=== PATIENT | male | born 1955 | race Caucasian/White ===

== ENCOUNTER → 2016-08-24 | Outpatient (CLI) | payer BC ==
[2014-08-28 19:00] VITALS: BP 124/75
[~2016-08-24] MED LIST: IBUP-1027 PO; NAPR220T70 PO
[2016-08-24 09:34] LABS: INR 0.9 (0.8-1.1)
[2016-08-24 10:32] LABS: BILIRUBIN,URINE NEGATIVE (NEG); GLUCOSE,URINE NEGATIVE (NEG); NITRITE,URINE NEGATIVE (NEG); PH,URINE 5.5; PROTEIN,URINE NEGATIVE (NEG-TRACE); UROBILINOGEN,URINE 0.2 mg/dL (0.2 mg/dL)
[2016-08-24 10:49] LABS: BACTERIA,URINE 0 /HPF (0-FEW); RBC,URINE 0 /HPF (0-2); WBC,URINE OCC /HPF (0-4)
[2016-08-24 10:50] LABS: SQUAMOUS EPITHELIAL CELL,UR FEW /LPF
--- NOTE | 2016-08-24 12:18 | EKG ---
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
--- NOTE | 2016-08-24 13:22 | RAD ---
Exam performed: 2 views of the chest. Indication: joint prehab patient-hx hypertension Date of Service:08/24/2016 9:58 AM . Comparison : 08/28/14 Findings: PA and lateral radiographs of the chest reveal a normal cardiomediastinal contour. The lungs are clear. No pleural fluid is seen. The visualized osseous structures are unremarkable. Impression: Radiographically normal chest.
== END | disposition home or self-care (01) ==
LOC: SURGPAT 14:31
PROVIDERS: ATTEND Orthopaedic Surgery Sports Medicine
DX: Z01.818 Encounter for other preprocedural examination (principal)
CPT/HCPCS: 36415; 71020; 81001; 85610; 85651; 85730; 87641; 93005

== ENCOUNTER 2016-09-07 07:30 | Inpatient (IN) | payer BC ==
[~2016-09-07] VITALS: Ht 175.3 cm; Wt 99.8 kg
[2016-09-16] MEDS ORDERED: CRESTOR10 MG PO (08:25)
[2016-09-16] MEDS ORDERED: LISI-338 PO (08:25)
[2016-09-28] MEDS ORDERED: HYDROCODONE/APAP 7.5/325MG TABLET. PO PRN (06:00)
[2016-09-28] MEDS ORDERED: MORPHINE SULFATE 5 MG, KETOROLAC TROMETHAMINE 30 MG, ROPIVacaine 0.5% PF 60 ML, EPINEPH... INT ART ONE ×5 (06:00)
[2016-09-28] MEDS ORDERED: TRANEXAMIC ACID 1,000 MG in IV NS 50ML -- 1ST BAG INJ ONE (06:00)
[2016-09-28] MEDS ORDERED: MELOXICAM 7.5 MG TABLET PO PRN (06:00)
[2016-09-28] MEDS ORDERED: CEFAZOLIN 2GM PREMIX 50 ML IV PRN (06:00)
[2016-09-28] MEDS ORDERED: IV RINGERS,LACTATED 1000ML 1,000 ML IV SCH (07:00)
[2016-09-28] MEDS ORDERED: FENTANYL PF 100 MCG/2 ML VIAL. IV PRN ×3 (07:00→09:45)
[2016-09-28] MEDS ORDERED: PROCHLORPERAZINE 10 MG/2 ML VIAL. IV PRN ×2 (07:00→09:45)
[2016-09-28] MEDS ORDERED: LIDOCAINE 1% 1 ML SYRINGE. ID PRN (07:00)
[2016-09-28] MEDS ORDERED: ONDANSETRON PF 4 MG/2 ML VIAL. IV PRN (07:00)
[2016-09-28] MEDS ORDERED: TRANEXAMIC ACID 1,000 MG in IV NS 50ML -- 2ND BAG INJ ONE (08:00)
[2016-09-28] MEDS ORDERED: ROCURONIUM 50 MG/5 ML VIAL. ONE (08:24)
[2016-09-28] MEDS ORDERED: PROPOFOL 20 ML IV ONE (08:24)
[2016-09-28] MEDS ORDERED: LIDOCAINE 2% 100 MG/5 ML SYRINGE. ONE (08:24)
[2016-09-28] MEDS ORDERED: FENTANYL PF 100 MCG/2 ML VIAL. ONE (08:24)
[2016-09-28] MEDS ORDERED: SUCCINYLCHOLINE 200 MG/10 ML VIAL. ONE (08:25)
--- NOTE | 2016-09-28 09:44 | PDOC ---
BRIEF OPERATIVE NOTE Date: Sep 28, 2016 Pre-Op Diagnosis R hip AVN Post-Op Diagnosis same Procedure Performed R JASON Surgeon Jonathon Austin Anesthesia Type: General Complications none REYNA BERMUDEZ II, MD Sep 28, 2016 09:44
[2016-09-28] MEDS ORDERED: OXYCODONE/APAP 5/325 TABLET. PO PRN (09:45)
[2016-09-28] MEDS ORDERED: TRAMADOL 50 MG TABLET. PO PRN ×2 (09:45)
[2016-09-28] MEDS ORDERED: CALCIUM CARBONATE 500 MG TAB.CHEW PO PRN (09:45)
[2016-09-28] MEDS ORDERED: PROCHLORPERAZINE 5 MG TABLET. PO PRN (09:45)
[2016-09-28] MEDS ORDERED: ZOLPIDEM 5 MG TABLET. PO PRN (09:45)
[2016-09-28] MEDS ORDERED: MORPHINE SULFATE 4 MG/ML DISP.SYRIN. IV PRN ×2 (09:45)
[2016-09-28] MEDS ORDERED: MORPHINE SULFATE 2 MG/ML DISP.SYRIN. IV PRN (09:45)
[2016-09-28] MEDS ORDERED: HYDROCODONE/APAP 10/325 TABLET. PO PRN (09:45)
[2016-09-28] MEDS ORDERED: METOCLOPRAMIDE HCL 10 MG/2 ML VIAL. IV PRN (09:45)
[2016-09-28] MEDS ORDERED: 0.9 % SODIUM CHLORIDE 10 ML DISP.SYRIN. IV PRN (09:45)
[2016-09-28] MEDS ORDERED: ACETAMINOPHEN 325 MG TABLET. PO PRN (09:45)
[2016-09-28] MEDS ORDERED: OXYCODONE/APAP 7.5/325 TABLET. PO PRN (09:45)
[2016-09-28] MEDS ORDERED: DEXTROSE 50% 25 GM / 50ML DISP.SYRIN. IV PRN (09:45)
[2016-09-28] MEDS ORDERED: MORPHINE SULFATE 10 MG/ML VIAL. IV PRN (09:45)
[2016-09-28] MEDS ORDERED: DIPHENHYDRAMINE 50 MG/ML VIAL. IV PRN (09:45)
[2016-09-28] MEDS ORDERED: CEFAZOLIN 2GM PREMIX 50 ML IV SCH (10:00)
[2016-09-28 10:10] LABS: PROTHROMBIN TIME PATIENT 12.3 SEC (11.7-14.0)
[2016-09-28] MEDS ORDERED: DESFLURANE 61 TO 120 MINUTES IH ONE (10:51)
[2016-09-28] MEDS ORDERED: DEXAMETHASONE SOD PHOS 20 MG/5 ML VIAL. ONE (10:51)
[2016-09-28] MEDS ORDERED: PHENYLEPHRINE in 0.9% NACL PF 1 MG/10 ML DISP.SYRIN. IV ONE (10:51)
[2016-09-28] MEDS ORDERED: GLYCOPYRROLATE 1 MG/5 ML VIAL. ONE (11:07)
[2016-09-28] MEDS ORDERED: NEOSTIGMINE METHYLSULFATE 5 MG/5 ML SYRINGE. ONE (11:07)
[2016-09-28] MEDS ORDERED: ONDANSETRON PF 4 MG/2 ML VIAL. ONE (11:07)
[2016-09-28] MEDS ORDERED: EPHEDRINE PF IN SALINE 50 MG/5 ML DISP.SYRIN. IV ONE (11:22)
[2016-09-28] MEDS: FENTANYL PF 100 MCG/2 ML VIAL. IV PRN ×4 (12:28→13:52)
[2016-09-28] MEDS: MORPHINE SULFATE 2 MG/ML DISP.SYRIN. IV PRN ×4 (12:33→13:20)
--- NOTE | 2016-09-28 12:54 | RAD ---
Pelvis radiograph History: Postoperative total hip arthroplasty. Comparison: 06/10/2016. Findings: AP view of the pelvis. Upper pelvis has been excluded from examination. There has been placement of right total hip arthroplasty. At least one acetabular screw is present. Relationship of the femoral head component to the acetabular cup appears anatomic on this single frontal view. Soft tissue gas is compatible with recent postoperative status. Impression: Postoperative changes of right total hip arthroplasty.
[2016-09-28] MEDS: HYDROMORPHONE 2 MG/ML VIAL. IV PRN ×2 (12:58→13:10)
[2016-09-28 14:34] VITALS: BP 94/59
[2016-09-28 15:02] VITALS: BP 109/70
--- NOTE | 2016-09-28 15:03 | OP ---
DATE OF SURGERY: 09/28/2016 SURGEON: Arun Bermudez M.D. CUSTOMS OFFICER: Mary Austin. ANESTHESIA: General. 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 PROCEDURE PERFORMED: Right total hip arthroplasty. COMPLICATIONS: None. ESTIMATED BLOOD LOSS: 100 mL. COMPONENTS INSERTED: 1. Drummond and Nephew size 4 standard offset Anthology femur with a 36+0 Oxinium head. 2. A 54 mm outer diameter acetabular shell with a 20-degree posteriorly directed elevated polyethylene liner. REASON FOR PROCEDURE: The patient is a very pleasant 61-year-old gentleman who has had lot of right-sided hip and groin pain that has been progressively worse. I had seen and evaluated in my outpatient orthopedic surgery clinic. We discussed the risks, benefits, alternatives to proceeding with the above surgery and he elected to proceed. DESCRIPTION OF PROCEDURE: The patient was greeted in the preoperative area by myself. Correct extremity was marked and verified. He was taken back to the operative suite and antibiotics were started en route. Once in the OR, he had successful induction of general anesthesia. He was laid in lateral decubitus position with the left side down and all pressure points padded including an axillary roll. He was secured to the bed with hip positioning device. We then proceeded to prep and drape right lower extremity in usual sterile fashion and then conducted a standard preoperative timeout. I then palpated, marked surface anatomy and made my standard posterolateral skin incision and dissected subcutaneous tissue down to the level of fascia and cauterized bleeders with electrocautery. I used a Woodard elevator to sweep aside some adherent subcutaneous tissue for better identification for later repair of the fascia. I then incised this in line with skin incision and bluntly split the gluteus yojana. I swept aside bursal tissue and held the leg in internal rotation and identified the quadratus and piriformis and took these down with electrocautery. The piriformis was tagged for later repair. I then incised the capsule in a Z-plasty type incision and tagged the ends of this for later repair as well. I then dislocated the femoral head and noted approximately half dollar sized area of cartilage that had from the underlying subchondral bone, which appeared markedly sclerotic and flattened. I then palpated, marked reproducible landmarks at greater and lesser trochanter and then marked the center of his femoral head and then took my measurements for his length and offset. I then made my neck cut approximately 1 cm proximal to lesser trochanter and delivered the femoral head from the operative field. I then placed my anterior and posterior acetabular retractors and excised the labrum and soft tissue from the medial acetabulum. I identified the transverse acetabular ligament and began reaming starting with 45 up to 54, which gave a good fit. After this, I took down some osteophytes posteriorly with a curved osteotome. I then impacted my cup in place, referencing his transverse acetabular ligament and the cross bar attachment. Once I ensured it was fully seated, I placed the screw into the posterior column. I then irrigated out the operative field again and then placed my liner in position with the elevation retro-posteriorly and then impacted this in position. I then directed my attention to the femur and delivered the operative field by rotating the leg and adducting the hip. The proximal femoral elevator was also used. I then used the papi cutting osteotome followed by canal finding reamer and a lateralizing reamer. I then began broaching with size 1 up to size 4, which gave a good fit and fill. I then trialed various head and neck sizes and felt the standard +0 gave the best caodaism of his measurements as well as stability and range of motion. I was happy with leg lengths. I then removed all trial components at the femur and thoroughly irrigated out the canal and operative field again and then impacted to place my 4 standard offset stem. I then trialed the +0 again and was happy with this. I then washed and dried the Munguia taper region and gently impacted my Oxinium femoral head into position. The hip was then reduced. We then injected my periarticular mixture into the robert-incisional area and operative area. After this, I closed capsule with simple interrupted #2 Ethibond. The piriformis was reapproximated through drill holes. I then irrigated out for the last time the operating field. I then closed the fascia with running #2 Quill. Inverted interrupted 2-0 in a multilayer fashion, Vicryl, was used to close subcutaneous tissue. Running 4-0 Monocryl in a subcuticular fashion was used for the skin. Prior to completion of wound closure, all counts reported correct x 2. No complications. At the conclusion of surgery, the patient was awakened from anesthesia. He tolerated this well. He was transferred gently supine to the hospital bed and taken to PACU in stable and extubated condition. Postop plan is to admit him to the [facility] for DVT and antibiotic prophylaxis. He will receive IV pain medicine and Rehab as well. ARUN BERMUDEZ MD DR: SRINIVASA/sarah JOB#: [id number] / [id number] SOWMYA
[2016-09-28] MEDS ORDERED: WARFARIN 7.5 MG TABLET. PO ONE (16:00)
[2016-09-28] MEDS: IV DEXTROSE 5 %-0.45 % NACL 1,000 ML IV SCH ×2 (16:28→19:41)
[2016-09-28] MEDS: CEFAZOLIN 2GM PREMIX 50 ML IV SCH ×2 (16:29→22:04)
[2016-09-28] MEDS: FERROUS SULFATE 325 MG TABLET. PO SCH (17:00)
[2016-09-28 18:56] VITALS: BP 106/66
[2016-09-28] MEDS: CELECOXIB 200 MG CAPSULE. PO SCH (20:48)
[2016-09-28] MEDS: ATORVASTATIN CALCIUM 40 MG TABLET. PO SCH (20:48)
[2016-09-28] MEDS: HYDROCODONE/APAP 7.5/325MG TABLET. PO PRN (20:49)
[2016-09-28 23:01] VITALS: BP 122/84
[2016-09-29 03:02] VITALS: BP 111/69
[2016-09-29] MEDS: CEFAZOLIN 2GM PREMIX 50 ML IV SCH (04:43)
[2016-09-29 05:17] LABS: INR 1.2 (0.8-1.1); PROTHROMBIN TIME PATIENT 14.5 SEC (11.7-14.0)
[2016-09-29] MEDS ORDERED: MAGNESIUM HYDROXIDE 2,400 MG/30 ML ORAL.SUSP. PO PRN (06:00)
[2016-09-29 06:05] LABS: HEMATOCRIT 38.3 % (39.0-53.0); HEMOGLOBIN 13.3 g/dL (13.0-17.5); RED BLOOD COUNT 3.92 x10^6/uL (4.30-5.70); RED CELL DISTRIBUTION WIDTH 12.8 % (11.5-14.5); WHITE BLOOD COUNT 17.4 x10^3/uL (4.0-11.0)
[2016-09-29 06:14] VITALS: BP 116/77
[2016-09-29] MEDS: MULTIVITAMIN with MINERAL TABLET. PO SCH (08:22)
[2016-09-29] MEDS: CELECOXIB 200 MG CAPSULE. PO SCH ×2 (08:22→20:50)
[2016-09-29] MEDS: SENNOSIDES/DOCUSATE 8.6/50MG TABLET. PO SCH (08:22)
[2016-09-29] MEDS: FERROUS SULFATE 325 MG TABLET. PO SCH ×2 (08:22→17:19)
[2016-09-29] MEDS: HYDROCODONE/APAP 7.5/325MG TABLET. PO PRN ×6 (08:22→23:09)
[2016-09-29] MEDS: LISINOPRIL 5 MG TABLET. PO SCH (09:00)
--- NOTE | 2016-09-29 09:24 | DISCH ---
DISCHARGE INSTRUCTIONS Condition on Discharge Condition on Discharge: Stable Activity After Discharge Activity Instructions for Disc: Activity as tolerated Bathing Instructions: Shower-keep dressing dry Weight Bearing Status after Di: As tolerated Diet after Discharge Diet after Discharge: Regular Wound Incision Care Wound/Incision Care: Ice to area for comfort, Keep wound/cast CDI, Do not change dressing Contacting the DRBrandt after DC Call your doctor for: Concerns you may have Follow-Up Follow up with: Yaw in 2wks Warfarin Follow-Up Warfarin Follow UP: Pharmacy REYNA BERMUDEZ II, MD Sep 29, 2016 09:24
--- NOTE | 2016-09-29 09:26 | PDOC ---
ORTHO PROGRESS NOTES Subjective Pain tolerable. No CP, SOB, N/V Vitals Vital Signs Date Time Temp Pulse Resp B/P Pulse Ox O2 Delivery O2 Flow Rate FiO2 09/29/16 08:22 Room Air 09/29/16 06:14 98.1 85 20 116/77 95 98.1 09/28/16 14:48 3.0 Labs Laboratory Tests Test 09/28/16 09:48 09/29/16 04:30 Prothrombin Time 12.3SEC (11.7-14.0) 14.5SEC (11.7-14.0) Prothromb Time International Ratio 1.0 (0.8-1.1) 1.2 (0.8-1.1) Activated Partial Thromboplast Time 31SEC (24-38) White Blood Count 17.4x10^3/uL (4.0-11.0) Red Blood Count 3.92x10^6/uL (4.30-5.70) Hemoglobin 13.3g/dL (13.0-17.5) Hematocrit 38.3% (39.0-53.0) Mean Corpuscular Volume 98fL (79-100) Mean Corpuscular Hemoglobin 34pg (25-35) Mean Corpuscular Hemoglobin Concent 35g/dL (31-37) Red Cell Distribution Width 12.8% (11.5-14.5) Platelet Count 187x10^3/uL (140-400) Laboratory Tests Test 09/28/16 09:48 09/29/16 04:30 Prothrombin Time 12.3SEC (11.7-14.0) 14.5SEC (11.7-14.0) Prothromb Time International Ratio 1.0 (0.8-1.1) 1.2 (0.8-1.1) Activated Partial Thromboplast Time 31SEC (24-38) White Blood Count 17.4x10^3/uL (4.0-11.0) Red Blood Count 3.92x10^6/uL (4.30-5.70) Hemoglobin 13.3g/dL (13.0-17.5) Hematocrit 38.3% (39.0-53.0) Mean Corpuscular Volume 98fL (79-100) Mean Corpuscular Hemoglobin 34pg (25-35) Mean Corpuscular Hemoglobin Concent 35g/dL (31-37) Red Cell Distribution Width 12.8% (11.5-14.5) Platelet Count 187x10^3/uL (140-400) Notes A and A RLE: dressing dry wiggles toes toes warm Assessment and Plan PT/OT likely home tomorrow REYNA BERMUDEZ II, MD Sep 29, 2016 09:26
[2016-09-29] MEDS ORDERED: WARFARIN 5 MG TABLET. PO ONE (16:00)
[2016-09-29] MEDS ORDERED: BISACODYL 10 MG SUPP.RECT. PR PRN (16:00)
[2016-09-29 18:42] VITALS: BP 136/80
[2016-09-29] MEDS: ATORVASTATIN CALCIUM 40 MG TABLET. PO SCH (20:50)
[2016-09-30 06:18] VITALS: BP 105/66
[2016-09-30] MEDS: SENNOSIDES/DOCUSATE 8.6/50MG TABLET. PO SCH (08:01)
[2016-09-30] MEDS: CELECOXIB 200 MG CAPSULE. PO SCH (08:01)
[2016-09-30] MEDS: MULTIVITAMIN with MINERAL TABLET. PO SCH (08:01)
[2016-09-30] MEDS: FERROUS SULFATE 325 MG TABLET. PO SCH (08:01)
[2016-09-30] MEDS: LISINOPRIL 5 MG TABLET. PO SCH ×2 (08:02→14:35)
--- NOTE | 2016-09-30 09:42 | PDOC ---
ORTHO PROGRESS NOTES Subjective pain tolerable, no other complaints Vitals Vital Signs Date Time Temp Pulse Resp B/P Pulse Ox O2 Delivery O2 Flow Rate FiO2 09/30/16 09:00 18 Room Air 09/30/16 08:02 79 105/66 09/30/16 06:18 97.1 97 97.1 Labs Laboratory Tests Test 09/28/16 09:48 09/29/16 04:30 Prothrombin Time 12.3SEC (11.7-14.0) 14.5SEC (11.7-14.0) Prothromb Time International Ratio 1.0 (0.8-1.1) 1.2 (0.8-1.1) Activated Partial Thromboplast Time 31SEC (24-38) White Blood Count 17.4x10^3/uL (4.0-11.0) Red Blood Count 3.92x10^6/uL (4.30-5.70) Hemoglobin 13.3g/dL (13.0-17.5) Hematocrit 38.3% (39.0-53.0) Mean Corpuscular Volume 98fL (79-100) Mean Corpuscular Hemoglobin 34pg (25-35) Mean Corpuscular Hemoglobin Concent 35g/dL (31-37) Red Cell Distribution Width 12.8% (11.5-14.5) Platelet Count 187x10^3/uL (140-400) Notes A and A in bed incision ok remains NVI RLE Assessment and Plan PT/OT home later today REYNA BERMUDEZ II, MD Sep 30, 2016 09:42
[2016-09-30 09:58] LABS: HEMATOCRIT 39.5 % (39.0-53.0); HEMOGLOBIN 12.9 g/dL (13.0-17.5)
[2016-09-30 10:10] LABS: INR 1.8 (0.8-1.1); PROTHROMBIN TIME PATIENT 19.6 SEC (11.7-14.0)
[2016-09-30] MEDS ORDERED: WARFARIN 3 MG TABLET. PO ONE (14:00)
[2016-09-30] MEDS ORDERED: WARF3TAB PO (14:06)
[2016-09-30] MEDS: HYDROCODONE/APAP 7.5/325MG TABLET. PO PRN (14:36)
[2016-09-30 14:41] VITALS: BP 150/91
--- NOTE | 2016-09-30 15:26 | PATHOLOGY ---
PATHOLOGY REPORT * * * * * * * * FINAL DIAGNOSIS: Femoral head, right total hip arthroplasty: - Avascular necrosis, focal. - Degenerative arthritis. COMMENT: There is no evidence of malignancy. (MICKEYM:; d/t: 09/30/16) REPORT ELECTRONICALLY SIGNED BY: Natalio Godoy M.D. DATE/TIME: 09/30/2016 15:25 * * * * * * * * GROSS PATHOLOGY: Received in formalin labeled "Dutch Breaux, right hip bone and tissue," is a femoral head measuring 5.1 x 5.1 x 5.1 cm in greatest dimensions. The articular surface is light moya and smooth to slightly granular in appearance with significant evidence of the cartilage pulling away from the underlying bone. Sectioning the bone reveals light moya cut surfaces with a slight amount of possible avascular necrosis. Unit Educator tissue is submitted in cassette A1, following decalcification. (CAA; 09/29/2016) INITIAL CPT CODE(S): A; 33502, 82733 Professional services performed [place] [facility] [address] Technical services performed by [facility] at [address] [place] [address]. SPECIMEN(S) RECEIVED: A.Right hip bone and tissue CLINICAL HISTORY: Right hip DJD/AVN PATIENT: DUTCH BREAUX /AGE: 9 1955 (Age: 61) PATIENT #: [id number] ALT CASE #: SPECIMEN COLLECTION DATE: 09/28/2016 SPECIMEN RECEIVED DATE: 09/28/2016 [facility] - [address] [place] [address] - PHONE: [phone] * * * END OF REPORT * * *
--- NOTE | 2016-10-01 10:00 | PDOC3 ---
Discharge Summary Visit Information Date of Admission: Sep 28, 2016 Date of Discharge: Sep 30, 2016 Admitting Diagnosis: right hip avascular necrosis Final Diagnosis Problems Medical Problems: (1) Avascular necrosis of bone of right hip Status: Acute Brief Hospital Course Allergies Allergies Coded Allergies Type Severity Reaction Last Updated Verified No Known Medication Allergies Allergy Unknown 09/28/16 Yes strawberry Adverse Reaction Intermediate Hives 09/28/16 Yes tomato Adverse Reaction Intermediate Hives 09/28/16 Yes Vital Signs Vital Signs Date Time Temp Pulse Resp B/P Pulse Ox O2 Delivery O2 Flow Rate FiO2 09/30/16 14:41 97.5 107 18 150/91 97 Room Air 97.5 Lab Results Laboratory Tests Test 09/30/16 08:40 Hemoglobin 12.9g/dL (13.0-17.5) Hematocrit 39.5% (39.0-53.0) Mean Corpuscular Hemoglobin Concent 33g/dL (31-37) Prothrombin Time 19.6SEC (11.7-14.0) Prothromb Time International Ratio 1.8 (0.8-1.1) Brief Hospital Course Mr. Breaux is a 61 old male who presented to my outpatient orthopedic surgery clinic with complaints of severe and progressive pain that failed conservative therapies including injections. We had a discussion of the risks, benefits, alternatives to total hip arthroplasty and he elected to proceed. He tolerated surgery well cover well from anesthesia in the PACU. He was then taken to the [facility] for care and observation. He did receive PT, OT, DVT and antibiotic prophylaxis. He recovered well from surgery and remained hemodynamically stable and afebrile throughout the hospitalization. Pain was controlled on oral pain medicine at the time of discharge. Good progress was made with therapy throughout the hospitalization, and activities of daily living were accomplished by the patient. The incision was clean dry and intact and the operative extremity had normal motor and sensation. Discharge Information Condition at Discharge: Stable Follow Up: Weeks Disposition/Orders: D/C to Home Scheduled Lisinopril (Lisinopril) 1 TAB PO DAILY (Reported) Rosuvastatin Calcium (Crestor) 1 TAB PO DAILY (Reported) Warfarin Sodium (Coumadin) 1 TAB PO DAILY (Reported) Discontinued Medications Ibuprofen (Ibuprofen) 400 MG PO BID PRN PRN INFLAMMATION (Reported) Naproxen Sodium (Aleve) 220 MG PO BID (Reported) Patient Instructions Patient Instructions He will be discharged home. We will get him started on outpatient therapy as soon as we are able. The patient will be on Coumadin for a month. He can weight-bear as tolerated. Worrisome signs and symptoms that should prompt a phone call to my office were discussed. We'll see him back in 2 weeks, sooner should a problem arise. REYNA BERMUDEZ II, MD Oct 01, 2016 10:00
== END 2016-09-30 15:10 | disposition home or self-care (01) | DRG 470 ==
LOC: EDSTATUS 07:30 → OPSVCIP 09-28 08:43 → 4 SOUTHEST 09-28 14:22
PROVIDERS: ADMIT Orthopaedic Surgery Sports Medicine; ATTEND Orthopaedic Surgery Sports Medicine
PROC: 0SR90J9 Replacement of Right Hip Joint with Synthetic Substitute, Cemented, Open Approach (ICD-10-PCS; principal; 2016-09-28 10:15)
DX: M16.11 Unilateral primary osteoarthritis, right hip (principal); M87.9 Osteonecrosis, unspecified; Z79.899 Other long term (current) drug therapy; Z88.8 Allergy status to other drugs, medicaments and biological substances; Z91.018 Allergy to other foods
CPT/HCPCS: 36415; 72170; 85014; 85018; 85027; 85610; 85730; 86850; 86900; 86901; 88304; 88311; C1713; J0171; J0330; J0690; J0780; J1100; J1170; J1200; J1885; J2270; J2370; J2405; J2704; J2710; J2795; J3010; J3490; J7030; J7120; 97116; 97150; 97530; 97535

== ENCOUNTER → 2016-09-14 | Outpatient (CLI) | payer BC ==
[2014-08-28 19:00] VITALS: BP 124/75
[~2016-09-14] MED LIST changes: +CRESTOR10 MG PO; +LISI-338 PO
--- NOTE | 2016-09-14 17:29 | CARD ---
APPROVED REPORT EXAM: Two-dimensional and M-mode echocardiogram with Doppler and color Doppler. Other Information Quality : GoodHR: 95bpm Rhythm : NSR INDICATION Abnormal ECG RISK FACTORS Hypertension Hyperlipidemia Family History Smoking 2D DIMENSIONS RVDd2.6 (2.9-3.5cm)Left Atrium(2D)3.9 (1.6-4.0cm) IVSd0.7 (0.7-1.1cm)Aortic Root(2D)3.0 (2.0-3.7cm) LVDd4.3 (3.9-5.9cm)LVOT Diameter2.4 (1.8-2.4cm) PWd1.0 (0.7-1.1cm)LVDs2.9 (2.5-4.0cm) FS (%) 33.2 %SV51.3 ml LVEF(%)60.0 (>50%) Aortic Valve AoV Peak Rajesh.102.2cm/sAoV VTI19.0cm AO Peak GR.4.2mmHgLVOT Peak Rajesh.65.2cm/s AO Mean GR.3mmHgAVA (VMAX)2.87cm2 Mitral Valve MV E Laqdyerp16.1cm/sMV E Peak Gr.4mmHg MV DECEL [id number] A Yezfcwht34.9cm/s MV E Mean Gr.2mmHgE/A Ratio0.6 MV A Bxnfvrmd047ka Pulmonary Valve PV Peak Sodjwbbn43.0cm/s Tricuspid Valve TR P. Tgidltbs753ow/sRAP APHLGJKP7xxAi TR Peak Gr.41ddLuCXUE66ghWi Pulmonary Vein S1 Ebkjexcr87.1cm/sD2 Fbwigssy43.5cm/s PVa xuwmfejb78ldea LEFT VENTRICLE The left ventricle is normal size. There is normal left ventricular wall thickness. The left ventricu lar systolic function is normal and the ejection fraction is within normal range. The Ejection Fracti on is 60%. There is normal LV segmental wall motion. Transmitral Doppler flow pattern is Grade I-abno rmal relaxation pattern. RIGHT VENTRICLE The right ventricle is normal size. There is normal right ventricular wall thickness. The right ventr icular systolic function is normal. ATRIA The left atrium size is normal. The right atrium size is normal. The interatrial septum is intact wit h no evidence for an atrial septal defect or patent foramen ovale as noted on 2-D or Doppler imaging. AORTIC VALVE The aortic valve is mildly sclerotic. Doppler and Color Flow revealed no significant aortic regurgita tion. There is no significant aortic valvular stenosis. MITRAL VALVE The mitral valve leaflets are thickened. There is no evidence of mitral valve prolapse. There is no m itral valve stenosis. Doppler and Color Flow revealed no mitral valve regurgitation noted. TRICUSPID VALVE Doppler and Color Flow revealed mild tricuspid regurgitation. The pulmonary artery systolic pressure is estimated at 29 mmHg. There is no pulmonary hypertension. PULMONIC VALVE Doppler and Color Flow revealed mild pulmonic valvular regurgitation. GREAT VESSELS The aortic root is normal in size. The ascending aorta is normal in size. The pulmonary artery is nor mal. The IVC is normal in size and collapses >50% with inspiration. PERICARDIAL EFFUSION There is trace of pericardial effusion. Critical Notification Critical Value: No <Conclusion> The left ventricular systolic function is normal and the ejection fraction is within normal range. The Ejection Fraction is 60%. Transmitral Doppler flow pattern is Grade I-abnormal relaxation pattern. The right ventricle is normal size. The left atrium size is normal. The right atrium size is normal. The aortic valve is mildly sclerotic. There is no significant aortic valvular stenosis. The mitral valve leaflets are thickened. There is no mitral valve stenosis. Doppler and Color Flow revealed mild tricuspid regurgitation. The pulmonary artery systolic pressure is estimated at 29 mmHg. There is no pulmonary hypertension. Doppler and Color Flow revealed mild pulmonic valvular regurgitation. There is trace of pericardial effusion.
== END | disposition home or self-care (01) ==
LOC: ECHO 08:27
PROVIDERS: ATTEND Internal Medicine Cardiovascular Disease
DX: Z01.810 Encounter for preprocedural cardiovascular examination (principal); R94.31 Abnormal electrocardiogram [ECG] [EKG]; I07.1 Rheumatic tricuspid insufficiency
CPT/HCPCS: 93306

== ENCOUNTER → 2016-09-16 | Outpatient (CLI) | payer BC ==
[2014-08-28 19:00] VITALS: BP 124/75
[~2016-09-16] MED LIST changes: +REGADENOSON 0.4 MG/5 ML DISP.SYRIN. IV ONE
--- NOTE | 2016-09-16 18:52 | RAD ---
APPROVED REPORT Test Type: Pharmacological Stress Nurse/Tech: Karol Lilly R.N. Test Indications: abnormal ecg in office Cardiac History: htn, smoker Medications: see ehr Medical History: see ehr Resting ECG: sr Resting Heart Rate: 67 bpm Resting Blood Pressure: 119/70mmHg Pretest Chest Pain: No chest pain Nurse/Tech Notes lungs cta, heart tones regular, good radial pulse Consent: The procedure was explained to the patient in lay terms. Informed consent was witnessed. Brodie eout was entered into [employer]. History and Stress Test performed by Karol Lilly R.N. Pharm. Details Pharmacologic stress testing was performed using 0.4mg per 5ml of regadenoson given intravenously ove r 7-10 seconds. Stress Symptoms No chest pain or symptoms.Dizziness POST EXERCISE Reason for Termination: Infusion complete Target HR: No Max HR: 115 bpm Max Blood Pressure: 142/86mmHg Chest Pain: No. Arrhythmia: No. ST Change: No. Imaging Protocol IMAGE PROTOCOL: Rest Tc-99m/stress Tc-99m 1 day Rest: Stress: Viability: Radiopharm.Tc99m HqcycrykvTk86l Sestamibi Dose12.4mCi 34mCi Duration 15min. 10min. Img Date 09/16/2016 09/16/2016 Inj-Img Ksfa48xbp. 60min. Rest Admin Site:IV - Right AntecubitalAdministrator:SABINO Philippe Stress Admin Site: IV - Right AntecubitalAdministrator: RON Welch, ARRT (R)(N) STRESS DATA End Diast. Vol.59.0mlAv. Heart Dfou223.0bpm End Syst. Vol.10.0mlCO Index BSA0.0L/min Myocardial Pvge862.0gEject. Ubwgoxec97.0% Stress Rates Pk. Fill Rate7.44EDV/secLVtime Pk. Fill 139.93msec Pk. Empty Rate8.28ESV/secLVtime Pk. Eject81.56msec / Pk. Fill1.47EDV/sec Stress Scores Regional WT1.00Summed WT4.00 Regional WM0.00Summed WM0.00 LV Perf. Quant 17 Seg. SSS0.00 17 Seg. SRS1.00 17 Seg. SDS0.00 Stress Defect Extent (% LAD)0.00Rest Defect Extent (% LAD)0.00Rev. Defect Extent (% LAD)0.00 Stress Defect Extent (% LCX) 0.00Rest Defect Extent (% LCX)0.00Rev. Defect Extent (% LCX)0.00 Stress Defect Extent (% RCA)0.00Rest Defect Extent (% RCA)0.00Rev. Defect Extent (% RCA)0.00 Stress Defect Extent (% BHARATHI)0.00Rest Defect Extent (% BHARATHI)0.00Rev. Defect Extent (% BHARATHI)0.00 Conclusion 1. No electrocardiographic changes suggestive of myocardial ischemia with pharmacological stress. 2. No perfusion defects to suggest myocardial ischemia or scar. 3. Normal wall motion and wall thickening with an ejection fraction of 80%. 4. Scan indicates low risk for future cardiac events.
== END | disposition home or self-care (01) ==
LOC: NM 07:54
PROVIDERS: ATTEND Internal Medicine Cardiovascular Disease
DX: Z01.810 Encounter for preprocedural cardiovascular examination (principal); R94.31 Abnormal electrocardiogram [ECG] [EKG]
CPT/HCPCS: 78452; 93017; 96374; 96375; 96376; A9500; J2785

== ENCOUNTER → 2017-04-08 | Outpatient (CLI) | payer BC ==
[~2017-04-08] MED LIST changes: -REGADENOSON 0.4 MG/5 ML DISP.SYRIN. IV ONE; +WARF3TAB54 PO
== END | disposition home or self-care (01) ==
LOC: LAB 15:04
PROVIDERS: ATTEND Orthopaedic Surgery Sports Medicine
DX: M25.551 Pain in right hip (principal)
CPT/HCPCS: 36415; 85651; 86141